=== PATIENT | female | born 1975 | race Caucasian/White ===

== ENCOUNTER 2022-03-27 09:16 | Emergency (ER) | payer OTHER, SELFPAY ==
[2022-03-27 09:21] VITALS: BP 145/78; PULSE 96; TEMP 36.1; O2SAT 98; BMI 36.6
--- NOTE | 2022-03-27 09:35 | ED_ITS ---
HPI - General Adult General Chief complaint: Skin/Abscess/Foreign Body Stated complaint: Diabetes, swollen toe Time Seen by Provider: 03/27/22 09:27 Source: patient Mode of arrival: ambulatory Limitations: no limitations History of Present Illness HPI narrative: 47-year-old female coming in today complaining of toe pain. She noticed the pain yesterday. She noticed it was swollen and red. She denies any systemic symptoms. She denies trauma to the foot. She does state that she does have diabetic neuropathy and has had a history of toe ulcers in the past. Related Data Home Medications Medication Instructions Recorded Confirmed Novolin R Flexpen PRN 03/27/22 gabapentin 300 mg capsule 900 mg PO TID 03/27/22 03/27/22 insulin NPH isoph U-100 human 100 15 unit subcut BID 03/27/22 03/27/22 unit/mL (3 mL) subcutaneous pen (Novolin N Flexpen) liraglutide 0.6 mg/0.1 mL (18 mg/3 0.6 mg subcut DAILY 03/27/22 03/27/22 mL) subcutaneous pen injector (Sensitive Objectza 3-Odin) lisinopril 10 mg tablet 10 mg PO DAILY 03/27/22 03/27/22 Previous Rx's Medication Instructions Recorded cephalexin 500 mg capsule 500 mg PO QID 7 days #28 caps 03/27/22 Allergies Allergy/AdvReac Type Severity Reaction Status Date / Time cat dander Allergy Unknown Verified 03/27/22 09:28 Review of Systems Status of ROS: Reports: 10 or more systems reviewed and unremarkable except as noted in History and below PFSH PFS Social History Smoking Status: Never smoker Do you use any of these nicotine containing products: None Second hand tobacco smoke exposure: No How often do you have a drink containing alcohol: 4 or more times a week How many standard drinks containing alcohol do you have on a typical day: 5 or 6 How often do you have six or more drinks on one occasion: Weekly AUDIT-C Alcohol total score: 9 Non-prescribed substance use: denies use Exam Narrative: Exam Narrative: Well-nourished well-developed patient in no acute distress. Alert and oriented. Answers questions appropriately. Mood and affect are appropriate. Thoughts are goal oriented and rational. No tangential or magical thinking noted. Patient speaks in full sentences without needing to catch her breath. HEENT: Normocephalic atraumatic. Pupils are equally round reactive to light. Extraocular muscles are intact. Conjunctivae are moist without any icterus noted. Extremities: Bilateral lower extremities are without edema. Normal DP and PT pulses. Fourth phalanx of the right foot is markedly swollen. It is warm to touch. It is not significantly erythematous however. She does not have tenderness to palpation of that toe. She has some tenderness right at the base of the toe. The remainder of the foot is entirely normal. Const: Vital Signs, click to edit/add: Vital Signs - 24 hr 03/27/22 09:21 Temperature 96.9 F L Pulse Rate [Left P ulse Oximeter] 96 Blood Pressure [Ri ght Upper Arm] 145/78 H Pulse Oximetry 98 Oxygen Delivery Me thod Room Air Course Vital Signs Vital signs: Initial Vital Signs Temperature 96.9 F L 03/27/22 09:21 Temperature Source Temporal Artery Scan 03/27/22 09:21 Pulse Rate 96 03/27/22 09:21 Blood Pressure 145/78 H 03/27/22 09:21 Blood Pressure Mean 100 03/27/22 09:21 Blood Pressure Position Supine 03/27/22 09:21 Pulse Oximetry 98 03/27/22 09:21 Oxygen Delivery Method 03/27/22 09:21 Vital Signs Temperature 96.9 F L 03/27/22 09:21 Pulse Rate 96 03/27/22 09:21 Blood Pressure 145/78 H 03/27/22 09:21 Pulse Oximetry 98 03/27/22 09:21 Oxygen Delivery Method 03/27/22 09:21 Temperature 96.9 F L 03/27/22 09:21 Pulse Rate 96 03/27/22 09:21 Blood Pressure 145/78 H 03/27/22 09:21 Pulse Oximetry 98 03/27/22 09:21 Oxygen Delivery Method 03/27/22 09:21 Medical Decision Making MDM Narrative Medical decision making narrative: 47-year-old female with toe pain and swelling. Differential diagnoses includes trauma, cellulitis, gout, insect bite. Given her history of diabetes and history of ulcers in the past will go ahead and treat with Keflex q.i.d. we discussed returning to the ER if no improvement is noted in 48 hours or certainly if it is getting worse despite antibiotic treatment. We discussed imaging today, however given her lack of pain on examination, using joint decision making, we opted not to do any today. Discharge Plan Discharge Clinical Impression: Pain in toe Patient Disposition: Home, Self-Care Condition: Stable Additional Instructions: Possible causes of toe pain include trauma, cellulitis-an infection of the skin surrounding the toe, gout. Given your history of ulcerations of the toes we will go ahead and treat you today with an antibiotic. If you do not see improvement in 48 hours, recommend returning to your primary care provider for a re-evaluation. If it is getting worse despite antibiotic treatment, recommend returning to the ER. Elevate the leg throughout the day as much as you can to help with swelling and discomfort. Prescriptions: New cephalexin 500 mg capsule 500 mg PO QID 7 Days Qty: 28 0RF No Action Novolin R Flexpen PRN Novolin N Flexpen 100 unit/mL (3 mL) insulin pen 15 unit subcut BID Victoza 3-Odin 0.6 mg/0.1 mL (18 mg/3 mL) pen injector 0.6 mg subcut DAILY gabapentin 300 mg capsule 900 mg PO TID lisinopril 10 mg tablet 10 mg PO DAILY Stand Alone Forms: MyHealth Info Instructions
== END 2022-03-27 09:50 | disposition home or self-care (01) ==
LOC: ED 09:47
PROVIDERS: Emergency Provider Family Medicine
DX: M79.674 Pain in right toe(s) (principal)
CPT/HCPCS: 99283

== ENCOUNTER 2025-01-29 16:49 | Emergency (ER) | payer OTHER, SELFPAY ==
--- OUTSIDE RECORDS SUMMARY | 2023-12-21 04:27 | XMS_ITS | Continuity of Care Document ---
Author Organization [facility] Address [address] [facility] [place] [address] Phone Care Team Providers Care Maintenance Construction Helper Name Role Phone Lukasz Ortiz DO Unavailable Unavailable Medications Medication Instructions Dosage Effective Dates (start - stop) Status Comments gabapentin 300 mg capsule take 3 capsule by oral route 3 times every day 900 MG - Active lisinopril 10 mg tablet take 1 tablet by oral route every day 10 MG - Active simvastatin 20 mg tablet take 1 tablet by oral route every day in the evening 20 MG - Active hydroxyzine HCl 50 mg tablet take 1 tablet by oral route 4 times every day as needed 50 MG - Active metformin 500 mg tablet take 2 tablet by oral route 2 times every day with morning and evening meals 1000 MG - Active trazodone 50 mg tablet take 1 tablet by oral route every day at bedtime 50 MG - Active Procedures Procedure Date PT EVAL MOD COMPLEX 30 MIN SELF CARE MNGMENT TRAINING Psych Dx Eval OFFICE/OUTPATIENT VISIT, [facility] Advance Directives Directive Yes / No Effective Date File Name No Information Encounters Encounter Description Practice Location Reason(s) For Visit Diagnoses Date Provider Providers Copied on Encounter [facility], [address] [place] [address], [id number] , [place] tel:[phone] [facility] [place] No Information Diana Lal. [address] [facility], [place], [place], [id number] , [place]. tel:[phone] [facility], [address] [place], [place], [id number] , [place] tel: [phone] [facility] [place] pain (chief complaint) Type 2 diabetes mellitus with diabetic polyneuropathy 4 Samra Rossi. [address] [place] [address], [id number] , [place]. tel: [phone] Referring Provider: Pedro Luis Torres, [address] [place] [address] [place], [address] . tel:[phone] [facility], [address] [place] [address], [id number] , [place] tel: [phone] [facility] Type 2 diabetes mellitus with diabetic polyneuropathy 4 Diana Lal. [address] [place] [address] [facility] [place], [place], [place], [id number] , [place]. tel: [phone] Psych Dx Eval [facility], [address] [place] [address], [id number] , [place] tel: [phone] Telehealth Pain disorder with related psychological factorsAnxiety Disorder Due to Another Medical Condition 4 Melina Nava. [address] [place] [address], [id number] , [place]. tel: [phone] OFFICE/OUTPA TIENT VISIT, [facility], [address] [place] [address] [place], [id number] , [place] tel: [phone] [facility] bilateral foot pain (chief complaint) Chronic pain syndromeType 2 diabetes mellitus with diabetic polyneuropathyOther middle or intermediate school principal (current) drug therapyPain in right footPain in left foot 4 Diana Lal. [address] [place] [address], [place], [place], [id number] , [place]. tel:[phone] Referring Provider: Pedro Luis Torres, [address] [place] [address] [place], [address] . tel:[phone] Family History Family Member Type Diagnosis Age At Onset No Information Payers Payer name Insurance type Covered democrat ID Noah raines(s) Umr CI [id number] Social History Type Description Quantity Date Captured Comments Alcohol Use Details Unknown Caffeine Use Details Unknown Tobacco Use Status No Information Smoking Status No Information Sex Female Chief Complaint And Reason For Visit No Information Reason For Referral Reason For Referral No Information Plan Of Treatment Date Type Action Status Goal HPV. Due on due Goal Tobacco Use. Due on due Goal Unhealthy drug u se screening. Due on due Goal Lipid panel. Due on due Goal Review Allergy L ist. Due on due Goal Medication Recon ciliation. Due on due Goal PHQ-9. Due on du e Goal Update Social Hi story. Due on due Goal Weight. Due on d ue Goal Height. Due on d ue Goal Hepatitis C scre ening. Due on due Goal Review Allergy L ist. Due on due Goal Lipid panel. Due on due Goal Weight. Due on d ue Goal Update Social Hi story. Due on due Goal Unhealthy drug u se screening. Due on due Goal HPV. Due on due Goal Tobacco Use. Due on due Goal Medication Recon ciliation. Due on due Goal PHQ-9. Due on du e Goal Height. Due on d ue Goal Hepatitis C scre ening. Due on due Goal Lipid panel. Due on due Goal Unhealthy drug u se screening. Due on due Goal PHQ-9. Due on du e Goal Height. Due on d ue Goal HPV. Due on due Goal Hepatitis C scre ening. Due on due Goal Review Allergy L ist. Due on due Goal Update Social Hi story. Due on due Goal Tobacco Use. Due on due Goal Weight. Due on d ue Goal Medication Recon ciliation. Due on due Goal Tobacco Use. Due on due Goal Weight. Due on d ue Goal HPV. Due on due Goal Medication Recon ciliation. Due on due Goal Lipid panel. Due on due Goal Unhealthy drug u se screening. Due on due Goal Update Social Hi story. Due on due Goal PHQ-9. Due on du e Goal Review Allergy L ist. Due on due Goal Height. Due on d ue Goal Hepatitis C scre ening. Due on due Goal Hepatitis C scre ening. Due on due Goal Height. Due on d ue Goal Medication Recon ciliation. Due on due Goal PHQ-9. Due on du e Goal HPV. Due on due Goal Lipid panel. Due on due Goal Review Allergy L ist. Due on due Goal Unhealthy drug u se screening. Due on due Goal Weight. Due on d ue Goal Tobacco Use. Due on due Goal Update Social Hi story. Due on due Goal Lifestyle educat ion regarding diet completed Future Order: Radiology Order MR Monie PITTS ([id number]), Sent on: Sent History Of Present Illness Encounter Date Complaint History Of Prese nt Illness pain diabetic neuropa thyPatient is a48 year old female with complaints of chronic bilateral foot neuropathy pain that has been around for about 5 years. Pain is located in bilateral feet especially toes and forefoot. Symptoms include sharp pain like walking on glass or rocks, stiffness, burning shooting pain and tingling. Pain is aggravated by weight bearing activity standing walking stairs. Patient also notes a wound on her toe that has been healing since May. Symptoms are somewhat relieved rest or change of position and medications. She has tried multiple different interventions, including podiatry. She has tries stretching and ankle ROM exercises without benefit She notes that his current level of discomfort limits standing for work, walking in community, dressing and standing for personal ADLs. Patient is hopeful a SCS will help her tolerate her daily activity with less limitation.This visit was conducted via synchronous telemedicine through an encrypted, real-time, interactive audio and video telecommunications to minimize risk and transmission of COVID-19. The distant site for this visit was the provider's office, the originating site was the patient's home. The patient and we understand the limitations of a telemedicine visit and the possibility of missing subtle findings on physical exam. The patient elected to proceed with the visit. Comments: Lary is a 48 y/o female here for initial consult regarding ongoing pain in BL feet r/t diabetic polyneuropathy, referred by self. Pain began suddenly approximately 5 years ago. Pain averages 4/10 throughout the day but worse at night 6-7/10 and is described as burning, sharp, and shocks. Reports she is very active at her work and her pain limits her ability to fully complete tasks and ADLs. States she has ulcers on her toes and her previous doctor recommended she find a new job with less physical labor to avoid further injury. Patient is present with her sister who participates in today's discussion of care. Notes she had an injury many years ago in which she fell and injured her lateral right hip and leg, causing paresthesia for several years in her upper right leg. However, notes this has been of less concern lately compared to pain and neuropathy in her BL feet. She has tried PT at [facility] in 2022 for her left shoulder s/p left SAD and was given a HEP. States she has previously completed lumbar ESIs. Notes her most recent A1C level was 8.0 and she continues to monitor regularly. The patient is currently managed on Gabapentin 900mg TID with relief, however, notes she would like to work towards limiting medicaiton use d/t possible negative SEs and strain on her kidneys. She is also currently utilizing metformin with benefit. Has tried Percocet 5/325mg, [place] 5/325mg, and Tramadol 50mg in the past. Lary is interested in pain management through [facility]. No other concerns today. bilateral foot pain Onset: sudde n. Duration: chronic. Severity level is 6. It occurs constantly. Location: bilateral foot. The pain is burning, sharp and shocks. The pain is aggravated by climbing (and descending) stairs, walking, standing, running and movement. The pain is relieved by heat, pain/RX meds, rest, lying down and sitting. Hand Dominance: right. Functional Status Date Functional Assessmen t No Information Instructions Date Instruction Additional Infor adeel Lifestyle education regarding di et Related to Myalgia, other site Assessments Type Assessment Date No Information Patient Care Teams Name Effective Dates (start - stop) Status Members No Information
--- OUTSIDE RECORDS SUMMARY | 2023-12-21 04:27 | XMS_ITS | Continuity of Care Document ---
Author Organization [facility] Address [address] [facility] [place] [address] Phone Care Team Providers Care International First Officer Name Role Phone Lukasz Ortiz DO Unavailable [...] MNGMENT TRAINING Psych Dx Eval OFFICE/OUTPATIENT VISIT, [facility] Advance Directives Directive Yes / No Effective Date File Name No Information Encounters Encounter Description Practice Location Reason(s) For Visit Diagnoses Date Provider Providers Copied on Encounter [facility], [address] [place] [address], [id number] , [place] tel:[phone] [facility] [place] No Information Diana Lal. [address] [facility], [place], [place], [id number] , [place]. tel:[phone] [facility], [address] [place], [place], [id number] , [place] tel: [phone] [facility] [place] pain (chief complaint) Type 2 diabetes mellitus with diabetic polyneuropathy 4 Samra Rossi. [address] [place] [address], [id number] , [place]. tel: [phone] Referring Provider: Pedro Luis Torres, [address] [place] [address] [place], [address] . tel:[phone] [facility], [address] [place] [address], [id number] , [place] tel: [phone] [facility] Type 2 diabetes mellitus with diabetic polyneuropathy 4 Diana Lal. [address] [place] [address] [facility] [place], [place], [place], [id number] , [place]. tel: [phone] Psych Dx Eval [facility], [address] [place] [address], [id number] , [place] tel: [phone] Telehealth Pain disorder with related psychological factorsAnxiety Disorder Due to Another Medical Condition 4 Melina Nava. [address] [place] [address], [id number] , [place]. tel: [phone] OFFICE/OUTPA TIENT VISIT, [facility], [address] [place] [address] [place], [place], [id number] , [place] tel: [phone] [facility] bilateral foot pain (chief complaint) Chronic pain syndromeType 2 diabetes mellitus with diabetic polyneuropathyOther computer terminal operator (current) drug therapyPain in right footPain in left foot 4 Diana Lal. [address] [place] [address], [place], [place], [id number] , [place]. tel:[phone] Referring Provider: Pedro Luis Torres, [address] [place] [address] [place], [address] . tel:[phone] Family History Family Member Type Diagnosis Age At Onset No Information Payers Payer name Insurance type Covered republican ID Noah raines(s) Umr CI [id number] Social History Type Description Quantity Date Captured Comments Alcohol Use Details Unknown Caffeine Use Details Unknown Tobacco Use Status No Information Smoking Status No Information Sex Female Chief Complaint And Reason For Visit No Information Reason For Referral Reason For Referral No Information Plan Of Treatment Date Type Action Status Goal Review Allergy L ist. Due on due Goal Medication Recon ciliation. Due on due Goal PHQ-9. Due on du e Goal Update Social Hi story. Due on due Goal Weight. Due on d ue Goal Height. Due on d ue Goal Hepatitis C scre ening. Due on due Goal HPV. Due on due Goal Tobacco Use. Due on due Goal Unhealthy drug u se screening. Due on due Goal Lipid panel. Due on due Goal Hepatitis C scre ening. Due on due Goal Height. Due on d ue Goal PHQ-9. Due on du e Goal Medication Recon ciliation. Due on due Goal Tobacco Use. Due on due Goal HPV. Due on due Goal Unhealthy drug u se screening. Due on due Goal Update Social Hi story. Due on due Goal Weight. Due on d ue Goal Lipid panel. Due on due Goal Review Allergy L ist. Due on due Goal Height. Due on d ue Goal PHQ-9. Due on du e Goal Unhealthy drug u se screening. Due on due Goal HPV. Due on due Goal Hepatitis C scre ening. Due on due Goal Review Allergy L ist. Due on due Goal Update Social Hi story. Due on due Goal Tobacco Use. Due on due Goal Weight. Due on d ue Goal Medication Recon ciliation. Due on due Goal Lipid panel. Due on due Goal Hepatitis C scre ening. Due on due Goal Height. Due on d ue Goal Review Allergy L ist. Due on due Goal PHQ-9. Due on du e Goal Update Social Hi story. Due on due Goal Unhealthy drug u se screening. Due on due Goal Tobacco Use. Due on due Goal Weight. Due on d ue Goal HPV. Due on due Goal Medication Recon ciliation. Due on due Goal Lipid panel. Due on due Goal Hepatitis C scre [...] BL feet. She has tried PT at [facility] in 2022 for her left shoulder s/p [...] metformin with benefit. Has tried Percocet 5/325mg, [place] 5/325mg, and Tramadol 50mg in the past. Lary is interested in pain management through [facility]. No other concerns today. bilateral foot pain [...]
--- OUTSIDE RECORDS SUMMARY | 2025-01-29 16:52 | XMS_ITS | Clinical Summary ---
Author Organization [facility] Address [address] [place] [id number] Care Team Providers Care Professor Of History Name Role Phone Nadira Lew CNM Unavailable Opal Guajardo Primary Care Provider Allergies No known active allergies Medications simvastatin (ZOCOR) 20 mg tablet TAKE 1 TABLET BY MOUTH EVERYDAY AT BEDTIME 05/14/20 20 Active acetaminophen (TYLENOL) 325 mg tabletIndications: Other headache syndrome Take 2 Tablets (650 mg) by mouth every 6 hours. Max acetaminophen dose: 4000mg in 24 hrs. 30 Tablet 06/27/20 21 Active insulin regular, U-100, human (NovoLIN R Flexpen) 100 unit/mL (3 mL) penIndications:typ e 2 diabetes mellitus Inject 0-16 units subcutaneous three times daily. Active blood-glucose sensor (DEXCOM G5-G4 SENSOR [facility]) As directed. Patient replaces every 10 days Active lisinopriL (PRINIVIL; ZESTRIL) 20 mg tablet Take 10 mg by mouth once daily. Active gabapentin (NEURONTIN) 300 mg capsule Take 900 mg by mouth three times daily. Active escitalopram oxalate (LEXAPRO) 10 mg tablet Take 10 mg by mouth once daily. patient has not started this prescription Active traZODone (DESYREL) 50 mg tablet Take 50 mg by mouth at bedtime. Active liraglutide (Victoza 2-Odin) 0.6 mg/0.1 mL (18 mg/3 mL) injection Inject 0.6 mg subcutaneous once daily. Patient is injecting 0.6 mg daily and slowly titrating her dose up to 1.2 mg Active aspirin (ECOTRIN) 81 mg enteric coated tablet Take 81 mg by mouth once daily with a meal. Active ascorbic acid, vitamin C, (Vitamin C) 1,000 mg tablet Take 1,000 mg by mouth once daily. Active ALPRAZolam (XANAX) 0.25 mg tablet Take 0.25 mg by mouth at bedtime, may repeat once. 01/09/20 23 Active FLUoxetine (PROZAC) 10 mg capsule Take 10 mg by mouth every morning. 03/03/20 23 Active hydrOXYzine HCL (ATARAX) 50 mg tablet Take 50 mg by mouth every 8 hours if needed. 03/03/20 23 Active naproxen (NAPROSYN) 500 mg tablet Take 500 mg by mouth every 12 hours if needed. 02/04/20 23 Active tretinoin (RETIN-A) 0.025 % 0.025 % cream Apply 1 Application topically to affected area(s) at bedtime. 02/04/20 23 Active oxyCODONE-acetamin ophen (PERCOCET) 5-325 mg per tabletIndications: Generalized abdominal pain Take 1 Tablet by mouth every 6 hours if needed for Pain. Max acetaminophen dose: 4000mg in 24 hrs. 15 Tablet 09/18/19 24 Active meclizine (ANTIVERT) 25 mg tabletIndications: Peripheral vertigo, unspecified laterality Take 1 Tablet (25 mg) by mouth every 6 hours if needed for Vertigo. 25 Tablet 08/28/19 25 Active metoclopramide HCl (REGLAN) 10 mg tabletIndications: Vertigo,Nausea and vomiting, unspecified vomiting type Take 1 Tablet (10 mg) by mouth four times daily. 20 Tablet 08/31/19 25 Active ondansetron (ZOFRAN ODT) 4 mg disintegrating tabletIndications: Nausea and vomiting, unspecified vomiting type Place 1 Tablet (4 mg) on the tongue every 8 hours if needed for Nausea/Vomiting. 10 Tablet 08/31/19 25 Active Active Problems Problem Noted Date Diagnosed Date Impingement syndrome of shoulder, left 3 Acute appendicitis 09/17/2022 Neuropathy, peripheral 05/08/2020 Hyperlipidemia (goal LDL < 100) 12/12/2013 Genital warts 12/02/2009 Diabetes mellitus, type 2 (diagnosed 1999+/-) Infertility 12/02/2009 Genital herpes 12/02/2009 Immunizations Immunization Administration Dates Next Due Influenza, IIV3 (Age >=3 years) 05/28/2008 Pneumococcal Poly,23-Valent (Pneumovax) 11/11/19 03 Td (Age >=7 Years) 08/24/1999 Tdap 04/11/2012 Family History Medical History Relation Name Comments Diabetes Father Hyperlipidemia Father Hypertension Father Hyperlipidemia Mother Hypertension Mother Relation Name Status Comments Father Mother Social History Tobacco Use Types Packs/Day Years Used Date Smoking Tobacco: Never Smokeless Tobacco: Never Tobacco Cessation:Counseling Given: Not Answered Alcohol Use Standard Drinks/Week Comments Yes 0 (1 standard drink = 0.6 oz pur e alcohol) occasional Social Connections Answer Date Recorded Frequency of Communication with Friends and Fami ly Not on file 12/01/2022 Interpersonal Safety Answer Date Record ed Are you being hit, kicked, p ushed or yelled at (see row info)? 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 Not on file Not on file Not on file Obstetrics History Para Term AB IAB SAB Ectopic Multiple Livin g Live Births 2 0 0 0 2 0 2 0 0 0 Date Outcome GA Total Labor Labor/2nd/3rd Weight Sex Type Anes PTL Tamy A1 A5 Name Clin SAB SAB Last Filed Vital Signs Vital Sign Reading Time Taken Comments Blood Pressure 160/86 08/31/2024 8:16 PM [employer] Pulse 60 08/31/2024 8:16 PM [employer] Temperature 36.9 C (98.4 F) 08/31/2024 3:31 PM [employer] Respiratory Rate 18 08/31/2024 3:31 PM [employer] IN[employer]ER Oxygen Saturation 99% 08/31/2024 8:16 PM [employer]ER Inhaled Oxygen Concentration - - Weight 83.6 kg (184 lb 6.4 oz) 08/31/2024 3:31 P M [employer] Height 167.6 cm (5' 6) 08/31/2024 2:56 PM [employer] Body Mass Index 29.76 08/31/2024 2:56 PM [employer] Plan of Treatment Health Maintenance Due Date Last Done Comments Depression screening for age 12+ 1989 HIV for age 15-65 1992 BMI (ht and wt on same day) for age 18+ 1995 Hepatitis C screening for age 18-79 1995 Hepatitis B series for 19+ ( 1 of 3 - 19+ 3-dose series) 1996 Pneumococcal series for age 6-49 (2 of 2 - PCV) 11/11/2003 11/10/2002 Pap test for age 21-65 04/11/2015 04/11/2012 Colonoscopy through age 75 2022 Lipids for age 45-75 2022 12/12/2013, 04/11/20 12 Mammogram for age 45-75 2022 Tetanus booster 04/11/2022 04/11/2012, 08/24/1999 COVID-19 vaccine series ( season) 2024 12/19/2020, 11/21/2020 Influenza Vaccine (Season Ended) 2025 05/28/20 08 Tdap Completed 04/11/2012 Medical Devices Implanted Type Area Debrander Device Identifier Shelf Expiration Date Model / Serial / Lot Sut Arthrex Prox Tenodesis Implnt Kit Rev 0 - [id number] Implanted:Qty: 1 on 03/18/2023 by Saul Terry MD at [facility] Left: Shoulder [employer] 03/22/2027 [id number] / / [id number] Procedures Procedure Name Priority Date/Time Associated Diagnosis Comments LIPID PANEL W REFLEX MEASURED LDL Routine 12/12/2013 8:25 AM CDT Screening, lipid MANAGER MEDICAID THIN PREP PAP SCREEN IMAGED Routine 04/11/2012 9:37 AM CDT Screening for cervical cancer from Last 3 Months or Most Recently Relevant to Health Maintenance Results * (ABNORMAL) LIPID PANEL W REFLEX MEASURED LDL (12/12/2013 8:25 AM CDT) CHOLESTEROL,TOTAL 221(H) 100 - 199 mg/dL 12/12/2013 11:13 PM CDT [facility] TRIGLYCERIDES 224(H) <150 mg/dL 12/12/2013 11:13 PM CDT [facility] HDL CHOLESTEROL 44 >40 mg/dL 4 11:13 PM CDT [facility] NON-HDL CHOLESTEROL 177(H) <145 mg/dl 12/12/2013 11:13 PM CDT [facility] CHOL/HDL RATIO 5.02(H) <4.50 12/12/2013 11:13 PM CDT [facility] LDL CHOLESTEROL 132(H) <=130 mg/dL 12/12/2013 11:13 PM CDT [facility] PATIENT STATUS FASTING 12/12/2013 11:13 PM CDT [facility] Blood specimen (specimen) BLOOD SPECIMEN / Unknown Add On / Unknown 12/12/2013 8:25 AM CDT 12/12/2013 11:46 AM CDT Leon Wang MD CHEMISTRY Final Result [facility] [address] [place] [address], * MANAGER MEDICAID THIN PREP PAP SCREEN IMAGED (04/11/2012 9:37 AM CDT) CYTOLOGY CYTOPATHOLOGY REPORT [facility] Status: Final Status [id number] CLINICAL INFORMATION Last Date of LMP :03/19/2012 Last Pap Date :unsure Last Pap Result :NIL ABN Miles/Bx Past 5 YRS :None Hormone Usage :BCP/OCP/Patch/Rin g Menstrual Status :Regular Periods Miles/Bx done today :No Additional Information :None given HPV Request :HPV if ASCUS SPECIMEN SOURCE :Cervical/vaginal ThinPrep Vial, screening SPECIMEN ADEQUACY :Satisfactory for evaluation Endocervical component present. INTERPRETATION/RES ULT Negative for intraepithelial lesion or malignancy (NIL) Cytology 1st Screener :had Signed by :had This specimen was screened by the FDA approved ThinPrep Imaging System and manually reviewed. NOTE: The Pap test is a screening technique, not a diagnostic procedure. It is used primarily to screen for squamous cancers and precursor lesions. Published studies have shown that it is subject to both false negative and false positive results. The pap test should not be used as the sole means to diagnose or exclude pre-malignant and malignant lesions. COLLECTED:04/11/12 ACCESSIONED: 04/11/12 SIGNED: 04/13/12 [facility] P[facility] [place] CODE NIL [facility] Tissue specimen (specimen) (Cervical/Vagina l) 04/11/2012 9:37 AM CDT 04/11/2012 9:26 AM CDT us Leon Wang MD PATHOLOGY/CYTOLOGY Final Resul t [facility] INTERNAL ZIP [address] [place] [phone] from Last 3 Months or Most Recently Relevant to Health Maintenance Insurance [facility] [employer] Advance Directives * Full Code (Latest Code Status on File) Date Activated Date Inactivated Comments 03/18/2023 6:09 AM 03/18/2023 1:34 PM Question Answer Comments Code Status Discussion: Not Discussed * Full Code Date Activated Date Inactivated Comments 09/17/2022 12:32 PM 09/18/2022 6:58 PM Question Answer Comments Code Status Discussion: Unable to Assess Preferences, Provider to review later * Full Code Date Activated Date Inactivated Comments 06/27/2021 6:50 AM 06/27/2021 3:56 PM Question Answer Comments Code Status Discussion: Unable to Assess Preferences, Provider to review later Care Teams Professor Of History Relationship Specialty Start Date End Date Opal Guajardo PA [address] [id number] PCP - General Physician [employer] Worker 09/17/22 Nadira Lew CNM [facility] 03/31/12
--- OUTSIDE RECORDS SUMMARY | 2025-01-29 16:52 | XMS_ITS | Data Portability ---
Author Organization [place] - [facility], [employer] Address [address] [facility] [place] [address] Assessment Encounter Date Assessment Date Assessment LastModified by Organization Details LastModified Time 08/27/2023 08/27/2023 I did discussed findings with the patient. We have shown significant improvement in ulcer healing at this point. We debrided her lesions as previously documented. We discussed putting her in a custom orthotics to offload the pressure on her foot as well as the ulcer spots and discussed activity modifications. Advised to apply neosporin and band-aid on the right great toe ulcer. Additionally we talked about referral to [facility] for [facility] of the lower extremities to confirm for possible venous disease that is causing the swelling on her right ankle. Follow up in 1 week for ulcer re check. [email or web address] Not available 08/27/2023 17:04:47 09/03/2023 09/03/2023 I did discussed findings with the patient. We have shown significant improvement in ulcer healing at this point. We debrided her lesions as previously documented. We discussed putting her in a custom orthotics to offload the pressure on her foot as well as the ulcer spots and discussed activity modifications. Advised to apply neosporin and band-aid on the right great toe ulcer. The patient today was dispensed a pair of custom inserts (L3000 x2) and they were trimmed to fit shoegear. The patient will attempt these for a few weeks prior to a recheck. The goal director long term care would be to utilize these functional inserts to prevent ulcerations to the medial IPJ. If necessary we will proceed with modified Abad bunionectomy for correction. Additionally we talked about referral to [facility] for [facility] of the lower extremities to confirm for possible venous disease that is causing the swelling on her right ankle. Follow up in 2 weeks for ulcer re check. Not available 09/03/2023 22:27:07 10/01/2023 10/01/2023 I did discussed findings with the patient. Pre ulcerative lesions x 2 were debrided as previously documented. The goal director long term care would be to utilize the previously dispensed functional inserts to prevent ulcerations to the medial IPJ. If necessary we will proceed with modified Abad bunionectomy for correction. Additionally [facility] to confirm for possible venous disease that is causing the swelling on her right ankle. Follow up in 3 weeks for ulcer re check. Not available 10/01/2023 22:59:03 10/22/2023 10/22/2023 I did discussed findings with the patient. Pre ulcerative lesions x 2 were debrided as previously documented. The goal residential would be to utilize the previously dispensed functional inserts to prevent ulcerations to the medial IPJ. If necessary we will proceed with modified Abad bunionectomy for correction. Additionally we talked about referral to my partner, Dr. Tabor, for nerve stimulator to stimulate her nerves. We also talked about referral to [facility] for ultrasound of the lower extremities to confirm for possible venous disease that is causing the swelling on her right ankle. Follow up in 3 weeks for ulcer re check. Not available 10/24/2023 11:51:10 11/15/2023 11/15/2023 I did discussed findings with the patient. Pre ulcerative lesions x 2 were debrided as previously documented. Patient is now interviewing for new jobs at this time. The goal residential would be to utilize the previously dispensed functional inserts to prevent ulcerations to the medial IPJ. If necessary we will proceed with modified Abad bunionectomy for correction. Additionally we talked about referral to my partner, Dr. Tabor, for nerve stimulator to stimulate her nerves. We also talked [facility] to confirm for possible venous disease that is causing the swelling on her right ankle. Follow up in 3 weeks for ulcer re check. Not available 11/15/2023 16:13:51 Plan of Treatment Reminders Order Date Submit Date Provider Last Modified By Organization Details Last Modified Time Details Appointments None record ed. Lab None record ed. Referral None record ed. Procedures None record ed. Surgeries None record ed. Imaging None record ed. Medication Orders None record ed. Patient TargetsNo targets recorded. Patient InstructionsNo instructions recorded. Reason for Referral None Reported. Problems Name Problem SNOMED Code Status Onset Date Resolution Date Notes Provider Name and Address Organization Details Recorded Time Onychomyc osis of toenails 606622205 Active 2020 Onychomyco sis of toenails; Original Code: 3919111886 Original Codesystem : SNOMED CT Classif ication: Medical Co nfirmation Status: Confirmed Not Available [facility] 3 09:06:28 Pressure ulcer stage 1 Active 2020 Pressure ulcer stage 1; Original Code: 6532946939 Original Codesystem : SNOMED CT Classif ication: Medical Co nfirmation Status: Confirmed Not Available [facility] 3 09:06:28 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 Procedures Surgical History Date Name Laterality Status Provider Name and Address Organization Details Recorded Time 11/15/19 24 CallusDEBRIDEMENT [place], [address], [facility] 11/15/2023 16:13:16 10/22/19 24 CallusDEBRIDEMENT completed Nikhil Ashby [facility] 10/22/2023 16:13:06 10/01/19 24 CallusDEBRIDEMENT completed Nikhil Ashby [facility] 10/01/2023 16:19:32 09/03/19 24 CallusDEBRIDEMENT completed Randall Baez DPM [address] [place], [address], [facility] - [facility] 09/03/2023 22:24:40 08/27/19 24 CallusDEBRIDEMENT completed Randall Baez, CLARI [address] [place], [address], [facility] - [facility] 08/29/2023 19:24:41 08/19/20 23 Ulcer Care completed Nikhil Ashby [place] - [facility] 08/19/2023 15:35:11 08/11/20 23 Ulcer Care completed Nikhil Ashby [facility] 08/17/2023 05:15:27 Imaging Results None recorded. Procedure Notes None recorded. Medical Equipment None Reported. Medications Name Sig Start Date Stop Date Status Note LastModified by Organization Details LastModified Time trazodone 50 mg tablet TAKE 1 TABLET BY MOUTH EVERY DAY AT BEDTIME NEEDED FOR SLEEP active Not Available Not Available No t Available hydrocodone 5 mg-acetamino phen 325 mg tablet PLEASE SEE ATTACHED FOR DETAILED DIRECTIONS active Not Available Not Available N ot Available tretinoin 0.025 % topical cream PLEASE SEE ATTACHED FOR DETAILED DIRECTIONS active Not Available Not Available N ot Available ondansetron HCl 4 mg tablet TAKE 1 TABLET BY MOUTH EVERY 8 HOURS NEEDED FOR NAUSEA AND VOMITING active Not Available Not Available No t Available benzoyl peroxide 5 % topical gel APPLY TO FACE DAILY DURING THE DAY. USE WITH THE CLINDAMYCIN GEL. active Not Available Not Available No t Available Accu-Chek Softclix Lancets 2 EACH DAILY. active Not Available Not Available No t Available hydroxyzine HCl 50 mg tablet TAKE 1 TABLET BY MOUTH THREE TIMES A DAY NEEDED FOR ANXIETY active Not Available Not Available Not Available tramadol 50 mg tablet PLEASE SEE ATTACHED FOR DETAILED DIRECTIONS active Not Available Not Available N ot Available ketorolac 10 mg tablet TAKE 1 TABLET BY MOUTH EVERY 6 HOURS NEEDED FOR PAIN FOR UP TO 5 DAYS MAXIUM OF 40MG IN 24 HOURS active Not Available Not Available No t Available oxycodone-ac etaminophen 5 mg-325 mg tablet TAKE 1 TABLET BY MOUTH EVERY 6 HOURS NEEDED FOR PAIN . DO NOT EXCEED 4000 MG OF ACETAMINOPH EN PER 24 HOURS active Not Available Not Available No t Available alprazolam 0.25 mg tablet TAKE 1 TABLET BY MOUTH AT BEDTIME NEEDED FOR ANXIETY. active Not Available Not Available No t Available clindamycin 1 % topical gel APPLY TO FACE DAILY DURING THE DAY. USE WITH THE BENZOYL PEROXIDE GEL. active Not Available Not Available No t Available simvastatin 20 mg tablet TAKE 1 TABLET BY MOUTH EVERYDAY AT BEDTIME active Not Available Not Available No t Available polymyxin B sulfate 10,000 unit-trimeth oprim 1 mg/mL eye drops PLACE 1 DROP INTO RIGHT EYE EVERY 6 HOURS FOR 5 DAYS. active Not Available Not Available No t Available fluoxetine 10 mg capsule TAKE 1 CAPSULE BY MOUTH EVERY DAY active Not Available Not Available No t Available gabapentin 300 mg capsule TAKE 3 CAPSULES BY MOUTH 3 TIMES A DAY. active Not Available Not Available No t Available sertraline 25 mg tablet TAKE 1 TABLET (25MG) BY MOUTH DAILY X7 DAYS, 2 TABS (50MG) DAILY X7 DAYS, THEN 3 TABS (75MG) DAILY. active Not Available Not Available No t Available hydroxyzine HCl 10 mg tablet TAKE 1-2 TABLETS (10-20 MG TOTAL) BY MOUTH EVERY 8 (EIGHT) HOURS NEEDED FOR ANXIETY. active Not Available Not Available No t Available ondansetron 4 mg disintegrati ng tablet DISSOLVE 1 TABLET IN MOUTH EVERY 8 HOURS NEEDED FOR NAUSEA AND FOR VOMITING active Not Available Not Available No t Available metformin ER 500 mg tablet,exten ded release 24 hr PLEASE SEE ATTACHED FOR DETAILED DIRECTIONS active Not Available Not Available N ot Available naproxen 500 mg tablet TAKE 1 TABLET BY MOUTH TWICE A DAY NEEDED FOR PAIN active Not Available Not Available No t Available amoxicillin 875 mg-potassium clavulanate 125 mg tablet active Not Available Not Available Not Available escitalopram 10 mg tablet TAKE 1 TABLET BY MOUTH EVERY DAY active Not Available Not Available No t Available BD Ultra-Fine Mini Pen Needle 31 gauge x 11/05 active Not Available Not Available Not Available Victoza 3-Odin 0.6 mg/0.1 mL (18 mg/3 mL) subcutaneous pen injector INJECT 1.2 MG UNDER THE SKIN DAILY INDICATIONS : TYPE 2 DIABETES MELLITUS. active Not Available Not Available No t Available Trulicity 1.5 mg/0.5 mL subcutaneous pen injector active Not Available Not Available Not Available Accu-Chek Guide test strips 2 TEST DAILY. active Not Available Not Available No t Available Accu-Chek Guide Me Glucose Meter TEST DIRECTED FOR DIABETES CONTROL active Not Available Not Available No t Available Vitals None Recorded Social History None recorded. Functional Status None recorded. Mental Status None recorded. Family History Nothing Reported. Medical History No medical history recorded. Gynecological HistoryNo gynecological history recorded. 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 7999091156 778700 M20.5X1 Acquired h allux limitus of left great toe 0572856883 635223 M20.5X2 [id number] Randall Baez [facility] Main Office [address] [place] [address] 08/19/2023 15:24:02 08/26/2023 13:20:21 Peripheral neuropathy due to type 2 diabetes mellitus 1317066666 107 E11.42 Ulcer of foot 42745885 L 97.909 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 6403982234 191989 M20.5X1 Acquired h allux limitus of left great toe 2932420965 856741 M20.5X2 [id number] Randall Baez [facility] Main Office [address] [place] [address] 08/27/2023 16:08:18 08/30/2023 11:51:13 Peripheral neuropathy due to type 2 diabetes mellitus 7266318057 107 E11.42 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 2358785442 860413 M20.5X1 Acquired h allux limitus of left great toe 2017993683 137342 M20.5X2 Foot callus 261542215 L8 4 x2 [id number] Randall Baez [facility] Main Office [address] [place] [address] 09/03/2023 15:51:14 09/06/2023 10:45:46 Pain in left foot 8324125373 70047 M79.672 Pain in right foot 06144 88144 38685 M79.671 Peripheral neuropathy due to type 2 diabetes mellitus 9138776637 107 E11.42 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 5975517557 213824 M20.5X1 Acquired h allux limitus of left great toe 1783678501 127915 M20.5X2 Foot callus 136689849 L8 4 x2 [id number] Randall Baez [facility] Main Office [address] [place] [address] 10/01/2023 16:26:23 10/04/2023 09:38:12 Peripheral neuropathy due to type 2 diabetes mellitus 6734140019 107 E11.42 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 2100874876 250636 M20.5X1 Acquired h allux limitus of left great toe 2721952324 922413 M20.5X2 Foot callus 230506048 L8 4 x2 [id number] Randall Baez [facility] Main Office [address] [place] [address] 10/22/2023 16:00:38 10/25/2023 13:57:48 Peripheral neuropathy due to type 2 diabetes mellitus 5914967380 107 E11.42 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 2953120977 887513 M20.5X1 Acquired h allux limitus of left great toe 3638032736 247164 M20.5X2 Foot callus 681309902 L8 4 x2 [id number] Randall Baez [facility] Main Office [address] [place] [address] 11/15/2023 15:59:04 11/15/2023 16:24:00 Peripheral neuropathy due to type 2 diabetes mellitus 3836046751 107 E11.42 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 4978839013 414033 M20.5X1 Acquired h allux limitus of left great toe 1709958480 210738 M20.5X2 Foot callus 995565170 L8 4 x2 Health Concerns Section Related Observation LastModified by Organization Detai ls LastModified Time None Recorded Concern Status LastModified by Organization Details LastModified Time None Recorded Advance Directives Directive None Recorded Payers Encounter Date Sequence Insurance Name Policy Number Policy [employer] Covered Member ID [employer] Member ID Guarantor Name 08/27/2023 1 R [id number] Lary Thapa [id number] Lary Thapa 09/03/2023 1 R [id number] Lary Thapa [id number] Lary Thapa 10/01/2023 1 R [id number] Lary Thapa [id number] Lary Thapa 10/22/2023 1 R [id number] Lary Thapa [id number] Lary Thapa 11/15/2023 1 R [id number] Lary Thapa [id number] Lary Thapa Notes Date Note Type Note Provider Name and Address Organization Details Recorded Time 08/27/2023 text/html The patient is here for evaluation of developing diabetic ulcer on the plantar med great toe bilateral. She has had diabetic ulcers before which was resolved. She recalls her last A1c was 8% and neuropathy that has started 5-6 years ago. She also mentions that she is experiencing sensitivity to touch on the arch of the left foot. She is currently using an off the shelf insert and awaiting custom inserts at this time. Randall Baez DPM [address] [place] [address], [phone], [facility] 08/29/2023 19:25:03 09/03/2023 text/html The patient is here for evaluation of developing diabetic ulcer on the plantar med great toe bilateral. She has had diabetic ulcers before which was resolved. She recalls her last A1c was 8% and neuropathy that has started 5-6 years ago. She also mentions that she is experiencing sensitivity to touch on the arch of the left foot. She is currently using an off the shelf insert and her custom inserts have arrived today. The patient presents today not only for a recheck, but also to dispense her custom inserts. Randall Baez DPM [address] [place], [address], [facility] 09/03/2023 22:27:12 10/01/2023 text/html The patient is here for evaluation of developing diabetic ulcer on the plantar med great toe bilateral. She has had diabetic ulcers before which was resolved. She recalls her last A1c was 8% and neuropathy that has started 5-6 years ago. She also mentions that she is experiencing sensitivity to touch on the arch of the left foot. 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 Randall Baez DPM [address] [place], [address], [facility] 10/01/2023 22:59:07 10/22/2023 text/html The patient is here for evaluation of developing diabetic ulcer on the plantar med great toe bilateral. She has had diabetic ulcers before which was resolved. She recalls her last A1c was 8% and neuropathy that has started 5-6 years ago. She also mentions that she is experiencing sensitivity to touch on the arch of the left foot. 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 Randall Baez DPM [address] [place] [address], [phone], [facility] 10/24/2023 11:53:40 11/15/2023 text/html The patient is here for evaluation of developing diabetic ulcer on the plantar med great toe bilateral. She has had diabetic ulcers before which was resolved. She recalls her last A1c was 8% and neuropathy that has started 5-6 years ago. She also mentions that she is experiencing sensitivity to touch on the arch of the left foot. 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 Randall Baez DPM [address] [place], [address], [facility] 11/15/2023 16:13:54 OBGyn Episode No OBEpisode recorded.
--- OUTSIDE RECORDS SUMMARY | 2025-01-29 16:52 | XMS_ITS | Clinical Summary ---
Author Organization [facility] Address [address] [place] [address] Care Team Providers Care Director Of Preclinical Research Name Role Phone Opal Guajardo P.A.-C., P.A. Primary Care Provid er Source Comments Patient records contain information from all sites at [facility]. For routine questions regarding patient records, call [phone] during business hours, M-F 8:00 AM - 5:00 PM Central Time. Record requests for emergency care only can be directed to [phone] at any time.[facility] Allergies No known active allergies Medications * This document contains information received from the source organization and may not represent a complete record from that organization. NovoLIN R Regular U-100 Insuln 100 unit/mL injection Inject 0.1 mL (10 Units total) under the skin 3 (three) times a day before meals. 30 mL 3 10/05/19 20 Active nystatin (NYSTOP) 100,000 unit/gram powderIndications:Ca ndidiasis Intertrigo Apply 1 application topically 3 (three) times a day. 60 g 2 11/15/19 22 Active lisinopriL (PRINIVIL,ZESTRIL) 10 mg tablet TAKE 1 TABLET BY MOUTH EVERY DAY 90 tablet 3 12/31/19 22 Active hydrocortisone 2.5 % ointment Apply 1 application topically 2 (two) times a day. 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 Use with the Benzoyl Peroxide gel. 60 g 3 02/04/20 23 Active tretinoin (RETIN-A) 0.025 % creamIndications:Acn e Vulgaris Apply 1 Application topically at bedtime. Apply to face. Start using every other night for 1-2 weeks, then increase to nightly. Avoid use with Benzoyl Peroxide gel. Do not use during the day. 45 g 3 02/04/20 23 Active simvastatin (ZOCOR) 20 mg tabletIndications:Hy perlipidemia take 1 tablet by mouth everyday at bedtime 90 tablet 3 07/28/20 23 Active hydrOXYzine (ATARAX) 50 mg tabletIndications:An xiety Generalized Disorder TAKE 1 TABLET BY MOUTH 3 TIMES A DAY NEEDED FOR ANXIETY. 90 tablet 09/21/19 24 Active blood sugar diagnostic stripsIndications:Di abetes Mellitus Type 2 With Mild Nonproliferative Diabetic Retinopathy Without Macular Edema Left Eye (HCC) 2 test daily. 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 1 each 11/02/19 24 Active gabapentin (NEURONTIN) 300 mg capsuleIndications:D iabetes Mellitus Type 2 With Diabetic Neuropathy (HCC),Neuropathy Peripheral Take 3 capsules (900 mg total) by mouth 3 (three) times a day. 810 capsule 3 02/07/20 24 025 Active metFORMIN XR (Glucophage-XR) 500 mg 24 hr tabletIndications:Di abetes Mellitus Type 2 With Mild Nonproliferative Diabetic Retinopathy Without Macular Edema Left Eye (HCC) Take 2 tablets (1,000 mg total) by mouth 2 (two) times a day with meals. 360 tablet 3 06/08/20 24 025 Active benzoyl peroxide 5 % gel APPLY TO FACE DAILY DURING THE DAY. USE WITH THE CLINDAMYCIN GEL. Active ALPRAZolam (Xanax) 0.25 mg tabletIndications:An xiety Generalized Disorder,Insomnia Due To Medical Condition,Panic Disorder Episodic Paroxysmal Anxiety Take 1 tablet (0.25 mg total) by mouth at bedtime as needed for anxiety. 10 tablet 06/14/20 Active ergocalciferol (DrisdoL) 50,000 Unit capsuleIndications:D eficiency Vitamin D Take 1 capsule (50,000 Units total) by mouth once a week. 12 capsule 3 07/17/20 24 Active progesterone (Prometrium) 100 mg capsule Take 1 capsule (100 mg total) by mouth at bedtime. On days 12-28 of the cycle 90 capsule 3 07/17/20 Active ondansetron ODT (Zofran-ODT) 4 mg disintegrating tablet Dissolve 1 tablet (4 mg total) in the mouth every 8 (eight) hours as needed for nausea or vomiting. 20 tablet 07/17/20 Active clobetasoL (Temovate) 0.05 % cream Apply 1 Application topically 2 (two) times a day. Apply to rash. Don't apply to face. 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 9 mL 3 07/21/20 24 Active Additional Information Patient not taking.Reported on 08/25/2024 escitalopram (Lexapro) 20 mg tabletIndications:De pression Major Recurrent Moderate (HCC) Take 1 tablet (20 mg total) by mouth daily. 90 tablet 3 08/18/20 24 Active traZODone (DesyreL) 50 mg tabletIndications:An xiety Generalized Disorder,Panic Disorder Episodic Paroxysmal Anxiety Take 2-3 tablets (100-150 mg total) by mouth at bedtime as needed for sleep. for sleep 180 tablet 3 08/18/20 Active omeprazole (PriLOSEC) [address] capsule Take 1 capsule (20 mg total) by mouth daily before morning meal. 90 capsule 3 08/18/20 Active doxycycline hyclate (Vibramycin) 100 mg capsuleIndications:S inusitis Acute Frontal Take 1 capsule (100 mg total) by mouth 2 (two) times a day. 20 capsule 08/25/19 25 Active Active Problems Problem Noted Date Diagnosed Date Impingement Syndrome Shoulder Left 03/16/2023 Depression Major Recurrent Moderate 03/03/2023 Anxiety Generalized Disorder 01/29/2023 Psoriasis 10/15/2021 Panic Disorder Episodic Paroxysmal Anxiety 10/15 Neuropathy Peripheral 10/15/2021 Hypertension Essential Primary 03/12/2021 Morbid Obesity Body Mass Ind ex >= 35 with Comorbid Condition 12/11/2020 Diabetes Mellitus Type 2 With Diabetic Neuropath y 09/02/2020 Amblyopia 08/31/2017 Deformity Orbit From Trauma Right 08/31/2017 Diabetes Mellitus Type 2 Wit h Mild Nonproliferative Diabetic Retinopathy Without Macular Edema Left Eye 08/31/2017 Palsy Fourth Nerve Right 08/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 Hyperlipidemia 12/12/2013 Infertility Female 12/02/2009 Anogenital Venereal Warts 12/02/2009 Herpes Genitalis 12/02/2009 Resolved Problems Problem Noted Date Diagnosed Date Resolved Date Appendicitis Acute 09/17/2022 01/27/2023 3 Immunizations Immunization Administration Dates Next Due HepB Adult (HEPLISAV-B) 02/07/2024,03/12/2021 Influenza, Seasonal, Injectable 05/28/2008 Influenza, Unspecified 10/07/2020(Deferred: Qiana ent Refused) PCV20 01/14/2022 PPSV23 11/10/2002 SARS-COV-2 (COVID-19) - MODERNA(Discontinued) 11/21/2020 Td, (Adult) Unspecified 08/24/1999 Tdap 08/04/2022,04/11/2012 Family History Medical History Relation Name Comments Diabetes Father Saurav Other cancer Father Saurav Prostate/Bone/B rain Skin cancer Mother Juani Diabetes type II Paternal Grandmother Diabetes Sister Ciara Relation Name Status Comments Father Saurav Mother Juani Alive Paternal Grandmother Sister Ciara Alive Social History Tobacco Use Types Packs/Day Years Used Date Smoking Tobacco: Never Passive Smoke Exposure: Past Smokeless Tobacco: Never Tobacco Cessation:Counseling Given: Not Answered Alcohol Use Standard Drinks/Week Comments Yes 6 (1 standard drink = 0.6 oz pur e alcohol) [facility] Utilities Answer Date Recorded In the past 12 months has th e [employer] gas, oil, or water [employer] threatened to shut off services in your home? No 05/12/2024 Humiliation, Afraid, Rape, and Kick questionnair e Answer Date Recorded Fear of Current or Ex-Partner Not on file Emotionally Abused Not on file 05/06/2020 Physically Abused Not on file 05/06/2020 Within the last year, have y ou been raped or forced to have any kind of sexual activity by your partner or ex-partner? No 05/06/2020 Social Connection and Isolation Panel [NHANES] A nswer Date Recorded Frequency of Communication with Friends and Fami ly Not on file 05/06/2020 How often do you get togethe r with friends or relatives? Three times a week 05/06/2020 Attends [employer] Services Not on file 05/06 Active Member of Clubs or Organizations Not on f ile 05/06/2020 Attends Club or Organization Meetings Not on shea e 05/06/2020 Are you , , di vorced, , never , or living with a partner? Living with partner 05/06/2020 AUDIT-C Answer Date Recorded Q1: How often do you have a drink containing alc ohol? 2-3 times a week 05/06/2020 Q2: How many drinks containi ng alcohol do you have on a typical day when you are drinking? 5 or 6 05/06/2020 Q3: How often do you have si x or more drinks on one occasion? Weekly 05/06/2020 Overall Financial Resource Strain (CARDIA) Answe r Date Recorded How hard is it for you to pa y for the very basics like food, housing, medical care, and heating? Not hard at all 10/05/2019 PHQ-2 Answer Date Recorded PHQ-2 Score 2 08/18/2024 [facility] - Occupational Stress Questionnaire Answer Date Recorded Do you feel stress - tense, restless, nervous, or anxious, or unable to sleep at night because your mind is troubled all the time - these days? Not at all 05/06/2020 Exercise Vital Sign Answer Date Recorde d On average, how many days pe r week do you engage in moderate to strenuous exercise (like a brisk walk)? 0 days 05/12/2024 On average, how many minutes do you engage in exercise at this level? 0 min 05/12/2024 Hunger Vital Sign Answer Date Recorded Within the past 12 months, y ou worried that your food would run out before you got the money to buy more. Never true 05/12/20 Within the past 12 months, t he food you bought just didn't last and you didn't have money to get more. Never true 05/12/2024 PRAPARE - Transportation Answer Date Re corded In the past 12 months, has l ack of transportation kept you from medical appointments or from getting medications? No 04/24 In the past 12 months, has l ack of transportation kept you from meetings, work, or from getting things needed for daily living? No 05/12/2024 Depression Answer Date Recor ded PHQ-9 Total Score (max 27) 13 08/18 Nutrition Answer Date Recorded On average, how many serving s of fruits and vegetables do you eat per day (serving size is equal to 1 cup or approximately the size of a tennis ball)? 3-5 05/12/2024 Dental Answer Date Recorded Dental: Regular Dentist Yes 05/12/20 Employment Answer Date Recorded Employment status Employed and actively working without restrictions 05/12/2024 Housing Stability Answer Date Recorded What is your living situation today? I have a [facility] place to live 05/12/2024 Education Answer Date Recorded What is the highest level of school you have completed or the highest degree you have received? 12th grade 10/05/2019 Comments No Sex and Gender Information Value Date Recorded Sex Assigned at Female 03/21/2024 7:38 AM CDT Legal Sex Female 4:27 AM PUBLIC HEALTH PROFESSOR Gender Identity Female 01/23/2022 8:32 AM CDT Sexual Orientation Straight 03/21/2024 7: 38 AM CDT Last Filed Vital Signs Vital Sign Reading Time Taken Comments Blood Pressure 135/83 08/25/2024 1:49 PM PUBLIC HEALTH PROFESSOR Pulse 79 08/25/2024 1:49 PM PUBLIC HEALTH PROFESSOR Temperature 36.2 C (97.1 F) 08/25/2024 1:49 PM PUBLIC HEALTH PROFESSOR Respiratory Rate 16 08/24/2023 3:13 PM PUBLIC HEALTH PROFESSOR Oxygen Saturation 98% 01/14/2022 3:26 PM CDT Inhaled Oxygen Concentration - - Weight 85.5 kg (188 lb 7.9 oz) 08/25/2024 1:49 P M PUBLIC HEALTH PROFESSOR Height 165.5 cm (5' 5.16) 06/14/2024 4:17 PM CD T Body Mass Index 31.22 06/14/2024 4:17 PM CDT Plan of Treatment Health Maintenance Due Date Last Done Comments CT Colonography 1977 Cologuard 1977 Colonoscopy 1977 Colorectal Cancer Screening 1977 FIT 1977 Dilated Eye Exam 11/24/2023 11/23/2022 (Per formed elsewhere), 10/07/2021, 08/04/2021, Additional history exists Urine Albumin 03/15/2024 03/15/2023, 06/0 02/2023, 01/14/2022, Additional history exists COVID-19 Vaccine ( season) 2024 12/19/2020, 11/21/2020 Influenza Vaccine (#1) 2024 05/28/2008 Diabetic Office Visit with Foot Exam 08/03/2024 08/03/2023, 05/05/2022, 09/02/2020 Depression Monitoring (PHQ-9 for quality tracking) 08/23/2024 Hemoglobin A1C 11/14/2024 05/17/2024, 01/21, 08/03/2023, Additional history exists Depression Monitoring (PHQ-9) 12/17/2024 08/18/2024 Visit: Chronic Disease, age 18+ 02/06/2025 02/07/2024 Mammogram 03/10/2025 03/10/2024, 03/09/2022 Office Visit for Blood Pressure Check / Re-check 08/25/2025 08/25/2024 Creatinine Level (Kidney Function Test) 08/31/2025 08/31/2024, 05/17/2024, 02/07/2024, Additional history exists Potassium Level 08/31/2025 08/31/2024, 08/24, 05/18/2023, Additional history exists Sodium Level 08/31/2025 08/31/2024, 08/24, 05/18/2023, Additional history exists Cervical/Vaginal Cancer Screening 03/09/2027 03/09/2022, 03/09/2022, 04/11/2012 Lipid (Cholesterol) Screening 05/17/2029 05/17/2024, 03/15/2023, 12/06/2020, Additional history exists DTaP,Tdap,and Td Vaccines (3 - Td or Tdap) 08/04/2032 08/04/2022, 04/11/2012, 08/24/1999 HIV Screening Completed 10/15/2021 Pneumococcal vaccine (0-49 years) Completed 01/14/2022, 11/10/2002 Hepatitis B Vaccines Completed 02/07/2024, 03/12/20 Hepatitis C Screening Completed 02/07/2024 IPV Vaccines Aged Out No longer eligi ble based on patient's age to complete this topic Medical Devices Implanted Type Area Oracle Database Consultant Device Identifier Shelf Expiration Date Model / Serial / Lot Cont Glucose Monitoring (Cgm) Cont Glucose Monitoring (CGM) Arm Procedures Procedure Name Priority Date/Time Associated Diagnosis Comments HEMOGLOBIN A1C, B Routine 05/17/2024 3:00 PM CDT 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) LIPID PANEL, S Routine 05/17/2024 3:00 PM CDT 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) CREATININE WITH EGFR, S/P Routine 05/17/2024 3:00 PM CDT 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) BI BREAST SCREENING BILATERAL WITH TOMOSYNTHESIS RAD - Routine (most inpatients and all outpatients) 03/10/2024 3:18 PM CDT Screening Mammogram Breast Cancer HCV AB SCRN W/REFLEX TO HCV PCR, S Routine 02/07/2024 4:54 PM CDT Screening Test Laboratory BASIC METABOLIC PANEL, S/P Routine 03/15/2023 2:48 PM CDT Diabetes Mellitus Type 2 With Diabetic Neuropathy (HCC) ALBUMIN, RANDOM, U Routine 03/15/2023 2:44 PM CDT Diabetes Mellitus Type 2 With Diabetic Neuropathy (HCC) THINPREP W/HPV CO-TEST SCREEN Routine 03/09/2022 3:24 PM CDT Pap Smear Examination HIV-1/-2 AG AND AB SCREEN, PLASMA Routine 10/15/2021 4:17 PM PUBLIC HEALTH PROFESSOR Arthralgia Stiffness Of Other Specified Joint Not Elsewhere Classified from Last 3 Months or Most Recently Relevant to Health Maintenance Results * (ABNORMAL) Lipid Panel (05/17/2024 3:00 PM CDT) Triglycerides 112 mg/dL 05/17/2024 3:42 PM CDT OWAT Comment: ----REFERENCE VALUE---- Normal: <150 mg/dL Borderline High: 150-199 mg/dL High: 200-499 mg/dL Very High: > or =500 mg/dL Cholesterol, Total 150 mg/dL 2023 3:42 PM CDT OWAT Comment: ----REFERENCE VALUE---- Desirable: < 200 mg/dL Borderline High: 200 - 239 mg/dL High: > or = 240 mg/dL Cholesterol, LDL, Calculated 81 mg/dL 05/17/2024 3:42 PM CDT OWAT Comment: ----REFERENCE VALUE---- Desirable: <100 mg/dL Above Desirable: 100-129 mg/dL Borderline High: 130-159 mg/dL High: 160-189 mg/dL Very High: >=190 mg/dL ----ADDITIONAL INFORMATION---- LDL cholesterol calculated using the Lake/NIH equation. Cholesterol, HDL 49(L) >=50 mg/dL 05/17/20 3:42 PM CDT OWAT Cholesterol, Non-HDL, Calculated 101 mg/dL 05/17/2024 3:42 PM CDT OWAT Comment: ----REFERENCE VALUE---- Desirable: <130 mg/dL Above Desirable: 130-159 mg/dL Borderline High: 160-189 mg/dL High: 190-219 mg/dL Very High: > or =220 mg/dL Fasting (8 HR or more) No 05/17/2024 3:00 PM CDT OWAT Blood (Blood, Venous) 05/17/2024 3:00 PM CDT 05/17/2024 3:12 PM CDT Summer Weathers.A.-C., P.A. LAB BLOOD ADD-ON Final Result Performing Organization Address [facility] Co de Phone Number [facility] [address] [place] [address], [place] OWAT [facility] [place] [address] [place] [address] * (ABNORMAL) Hemoglobin A1c (05/17/2024 3:00 PM CDT) Hemoglobin A1c, B 6.7(H) 4.2 - 5.6 % 05/17/2024 3:31 PM CDT OWAT Comment: Hemoglobin A1c values greater than or equal to 6.5 percent are diagnostic for diabetes mellitus. Diagnosis should be confirmed by repeat testing. In diabetic patients, HbA1c goals should be discussed with healthcare provider. Blood (Blood, Venous) 05/17/2024 3:00 PM CDT 05/17/2024 3:12 PM CDT Sandrine DE LA ROSA, Summer.A.-C., P.A. LAB BLOOD ADD-ON Final Result Performing Organization Address [facility] Co de Phone Number [facility] [address] [place] [address], [place] [facility] [facility] [place] [address] [place] [address] * Creatinine with Estimated GFR (05/17/2024 3:00 PM CDT) Creatinine 0.89 0.59 - 1.04 mg/dL 05/17/2024 3:42 PM CDT OWAT Estimated GFR (eGFR) 80 >=60 mL/min/BSA 05/17/2024 3:42 PM CDT OWAT Comment: Estimated GFR calculated using the 2020 CKD_EPI creatinine equation. Blood (Blood, Venous) 05/17/2024 3:00 PM CDT 05/17/2024 3:12 PM CDT us Sandrine DE LA ROSA, Hetal., P.A. LAB BLOOD ADD-ON Final Result [facility] [address] [place] [address], [place] [facility] [place] [address] [place] [address] * BI Breast Screening Bilateral with Tomosynthesis (03/10/2024 3:18 PM CDT) Anatomical Region Laterality Modality Breast, Breast Imaging RST L OS, Breast Imaging ARZ LOS, Breast Imaging FLA LOS Bilateral Mammography Impressions 03/10/2024 3:44 PM CDT Negative. RECOMMENDATION: Annual Screening Mammogram ASSESSMENT: BI-RADS: 1: Negative. Narrative 03/10/2024 3:44 PM CDT EXAM: BI BREAST SCREENING BILATERAL WITH TOMOSYNTHESIS Current study was evaluated with a Computer Aided Detection (CAD) system. INDICATION: Screening mammogram. COMPARISON: Prior exam(s) were available and reviewed for comparison. DENSITY: c. The breast(s) are heterogeneously dense, which may obscure small masses. FINDINGS: No mammographic findings of malignancy. Procedure Note Jacques Muir M.D. - 03/10/2024 EXAM: BI BREAST SCREENING BILATERAL WITH TOMOSYNTHESIS Current study was evaluated with a Computer Aided Detection (CAD) system. INDICATION: Screening mammogram. COMPARISON: Prior exam(s) were available and reviewed for comparison. DENSITY: c. The breast(s) are heterogeneously dense, which may obscuresmall masses. FINDINGS: No mammographic findings of malignancy. IMPRESSION: Negative. RECOMMENDATION: Annual Screening Mammogram ASSESSMENT: BI-RADS: 1: Negative. us Opal Guajardo P.A.-C., P.A. IMG BI PROCEDURES Fi nal Result * HCV Ab Scrn w/Reflex to HCV PCR, Serum (02/07/2024 4:54 PM CDT) [facility] HCV Ab Screen, S Negative Negative 02/07/2024 8:24 PM CDT [facility] Blood (Blood, Venous) 02/07/2024 4:54 PM CDT 02/07/2024 7:14 PM CDT [facility] - 02/07/2024 8:24 PM CDT Specimen Information: Specimen ID: [id number] Specimen Type: Blood Specimen Collection Start Date: 02/07/2024 4:54 PM Specimen Received Date: 02/07/2024 7:14 PM Specimen ID: [id number] Specimen Type: Blood Specimen Collection Start Date: 02/07/2024 4:54 PM Specimen Received Date: 02/07/2024 7:05 PM Opal Guajardo P.A.-C., P.A. LAB MICROBIOLOGY - B LOOD ORDERABLES Final Result [facility] [address] [place] [address], [facility] [place] [address] [place] [address] * (ABNORMAL) Basic Metabolic Panel (03/15/2023 2:48 PM CDT) [facility] Potassium, P 4.2 3.6 - 5.2 mmol/L 03/15/2023 3:43 PM CDT OWAT Sodium, P 135 135 - 145 mmol/L 03/15/2023 3:43 PM CDT OWAT Chloride, P 99 98 - 107 mmol/L 03/15/2023 3:43 PM CDT OWAT Bicarbonate, P 24 22 - 29 mmol/L 03/15/2023 3:43 PM CDT OWAT Anion Gap, P 12 7 - 15 03/15/2023 3:43 PM CDT OWAT BUN (Blood Urea Nitrogen), P 22(H) 6 - 21 mg/dL 03/15/2023 3:43 PM CDT OWAT Creatinine 0.93 0.59 - 1.04 mg/dL 03/15/2023 3:43 PM CDT OWAT Estimated GFR (eGFR) 77 >=60 mL/min/BSA 03/15/2023 3:43 PM CDT OWAT Comment: Estimated GFR calculated using the 2020 CKD_EPI creatinine equation. Calcium, Total, P 9.5 8.6 - 10.0 mg/dL 03/15/2023 3:43 PM CDT OWAT Glucose, P 135 70 - 140 mg/dL 03/15/2023 3:43 PM CDT [facility] Blood (Blood, Venous) 03/15/2023 2:48 PM CDT 03/15/2023 3:02 PM CDT us Opal Guajardo P.A.-C., P.A. LAB BLOOD ADD-ON Fin al Result Performing Organization Address [facility]/ZIP Co de Phone Number [facility] [address] [place] [address], [facility] [[email or web address] OWAT [facility] [place] [address] [place] [id number] * (ABNORMAL) Albumin, Random, Urine (03/15/2023 2:44 PM CDT) Microalbumin 692.0 mg/L 03/15/2023 5:24 PM CDT OWAT Creatinine 112 mg/dL 03/15/2023 4:58 PM CDT OWAT Albumin/Creatinin e Ratio 618(H) <25 mg/g 03/15/2023 5:24 PM CDT OWAT Urine (Urine, Voided) 03/15/2023 2:44 PM CDT 03/15/2023 3:02 PM CDT us Opal Guajardo P.A.-C., P.A. LAB URINE ORDERABLES Final Result Performing Organization Address [facility]/ZIP Co de Phone Number [facility] [address], [place] [address], [place] OW[place] [facility] [place] [address] [place] [address] * ThinPrep w/HPV Co-Test Screen (03/09/2022 3:24 PM CDT) 03/17/2022 7:30 AM CDT [facility] Report electronically signed by SILVANA Sanz(ASCP) I verify that I have examined all relevant slides/materials for the specimen(s) and rendered or confirmed the diagnosis. 03/17/2022 7:30 AM CDT [facility] Gross Description Received specimen in a ThinPrep vial. 03/17/2022 7:30 AM CDT [facility] Pap Test Source Cervical/Endocervi saran 03/17/2022 7:30 AM CDT [facility] Clinical History routine exam 2021 7:30 AM CDT [facility] Menstrual Status(LMP, PM, ) unknown 03/17/2022 7:30 AM CDT [facility] Hormone Therapy/Contracep tives unknown 03/17/2022 7:30 AM CDT [facility] Interpretation Cervical/Endocervi saran (ThinPrep): Satisfactory for Evaluation Negative for Intraepithelial Lesion or Malignancy High Risk HPV: Negative Negative for High Risk HPV by nucleic acid amplification. The following High Risk HPV types were not detected: 16, 18, 31, 33, 35, 39, 45, 51, 52, 56, 58, 59, 66, and 68. 03/17/2022 7:30 AM CDT [facility] Varies (Cervix/Endocerv ix) 03/09/2022 3:24 PM CDT 03/10/2022 7:24 AM CDT us Debo Mathur M.D. LAB PAP PATHDX ORDERABLE S Final Result [facility] [address] [place] [address], [facility] [[email or web address]] [facility] [address] [place] [address] * HIV-1/-2 Ag and Ab Screen, Plasma (10/15/2021 4:17 PM PUBLIC HEALTH PROFESSOR) HIV Ag/Ab Screen, P Negative Negative 10/16/2021 1:54 PM PUBLIC HEALTH PROFESSOR [facility] Comment: Negative result does not rule out HIV infection. If exposure to HIV infection occurred <14 days ago, contact the laboratory to request addition of HIV-1 RNA detection / quantification test. HIV-1 p24 Ag Screen, P Negative Negative 10/16/2021 1:54 PM PUBLIC HEALTH PROFESSOR [facility] Comment: Negative result does not rule out HIV infection. If exposure to HIV infection occurred <14 days ago, contact the laboratory to request addition of HIV-1 RNA detection / quantification test. HIV-1 Ab Screen, P Negative Negative 2021 1:54 PM PUBLIC HEALTH PROFESSOR [facility] Comment: Negative result does not rule out HIV infection. If exposure to HIV infection occurred <14 days ago, contact the laboratory to request addition of HIV-1 RNA detection / quantification test. HIV-2 Ab Screen, P Negative Negative 2021 1:54 PM PUBLIC HEALTH PROFESSOR [facility] Comment: Negative result does not rule out HIV infection. If exposure to HIV infection occurred <14 days ago, contact the laboratory to request addition of HIV-1 RNA detection / quantification test. Blood (Blood, Venous) 10/15/2021 4:17 PM PUBLIC HEALTH PROFESSOR 10/16/2021 12:02 PM PUBLIC HEALTH PROFESSOR Yasmin Dillard M.D. LAB MICROBIOLOGY - BLOOD ORDERABLES Final Result [facility] [address] [place] [id number], [facility] [[email or web address]] [facility] in [address] [address] from Last 3 Months or Most Recently Relevant to Health Maintenance Insurance [employer] Care Teams Director Of Preclinical Research Relationship Specialty Start Date End Date Opal Guajardo P.A.-C., P.A. [address] [place] [address] PCP - General 02/05/22
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
[2025-01-29 16:54] VITALS: BP 164/89; PULSE 78; RESP 16; TEMP 36.7; O2SAT 98; BMI 30.2
--- NOTE | 2025-01-29 16:58 | CRLHL7_ITS ---
For Patients: As a result of the Cures Act, medical imaging exams and procedure reports are released immediately into your electronic medical record. You may view this report before your referring provider. If you have questions, please contact your health care provider. Indication: Fall, pain. Technique: Two views right clavicle. Comparison: None. Findings/Impression: No acute displaced fracture or malalignment. No soft tissue swelling. Joint spaces are maintained. Bony mineralization is age appropriate. Dictated by Jacques Danielle MD @ 01/29/2025 5:51:06 PM (Electronically Signed)
--- NOTE | 2025-01-29 17:05 | ED.GENADULT ---
HPI - General Adult General Chief complaint: Clavicle Injury/Pain Stated complaint: Broken collarbone Time Seen by Provider: 01/29/25 16:58 History of Present Illness HPI narrative: This 49-year-old female comes in with an injury to her right clavicle. She states that her 90 lb dog caused her to fall and she landed onto her right elbow and has pain in the right clavicle region. She also bruised her right knee. She did not hit her head or have loss of consciousness. She was able to get up and ambulate normally. She is complaining of pain focused in the right clavicle region. Related Data Home Medications ?Medication ?Instructions ?Recorded ?Confirmed gabapentin 300 mg capsule 900 mg PO TID 03/27/22 01/29/25 lisinopril 10 mg tablet 10 mg PO DAILY 03/27/22 01/29/25 escitalopram oxalate 20 mg tablet 20 mg PO DAILY 01/29/25 01/29/25 semaglutide 0.25 mg or 0.5 mg (2 0.5 mg subcut 01/29/25 mg/3 mL) subcutaneous pen injector (Ozempic) semaglutide 1 mg/dose (4 mg/3 mL) 1 mg subcut 01/29/25 subcutaneous pen injector (Ozempic) Previous Rx's ?Medication ?Instructions ?Recorded cephalexin 500 mg capsule 500 mg PO QID 7 days #28 caps 03/27/22 ketorolac 10 mg tablet 10 mg PO TID 5 days #15 tabs 01/29/25 Allergies Allergy/AdvReac Type Severity Reaction Status Date / Time cat dander Allergy Unknown Verified 03/27/22 09:28 Review of Systems Status of ROS: Reports: 10 or more systems reviewed and unremarkable except as noted in History and below Narrative: Constitutional: No fevers, no weight gain or loss. Eyes: No discharge. No vision changes. HENT: No congestion, no sore throat, no ear pain. Cardiovascular: No chest pain, no palpitations. Respiratory: No shortness of breath, no wheezes, no cough. Gastrointestinal: No abdominal pain, no vomiting, no diarrhea. Genitourinary: No dysuria, no hematuria. Musculoskeletal: Right shoulder pain with decreased range of motion of the right upper extremity. Skin: No rashes, no pruritis. Neurological: No dizziness, weakness, sensory change, speech change. Endo/Heme/Allergies: No bruising or bleeding. No polydipsia. Pysch: no suicidality, no anxiety, no insomnia. All other systems reviewed and are negative. [facility] Social History Smoking Status: Never smoker Do you use any of these nicotine containing products: None Second hand tobacco smoke exposure: No How often do you have a drink containing alcohol: 2-4 times a month How many standard drinks containing alcohol do you have on a typical day: 5 or 6 How often do you have six or more drinks on one occasion: Weekly AUDIT-C Alcohol total score: 7 Non-prescribed substance use: denies use and marijuana (any form) Exam Narrative: Exam Narrative: Constitutional: Well-developed, well-nourished, no acute distress. HEENT: Normocephalic, atraumatic. Neck: Normal range of motion. Nontender. Supple. Heart: Intact distal pulses. Lungs: No chest discomfort. No wheezes, rhonchi, or rales. Abdomen: Nontender. Back: Normal range of motion. Extremities: Pain localized around right clavicle. No obvious deformity. Decreased range of motion of the right upper extremity. Skin: Intact. No rash. Warm. No erythema or pallor. Neurologic: No altered sensation. No weakness. Alert and oriented. Psychiatric: No suicidality. No anxiety or depression. No insomnia. Nursing notes and vitals signs are reviewed. Const: Vital Signs, click to edit/add: Vital Signs - 24 hr 01/29/25 16:54 Temperature 98.1 F Pulse Rate [Pulse Oximeter] 78 Respiratory Rate 16 Blood Pressure [Ri ght Upper Arm] 164/89 H Pulse Oximetry 98 Oxygen Delivery Me thod Room Air Course Vital Signs Vital signs: Initial Vital Signs Temperature 98.1 F 01/29/25 16:54 Temperature Source Temporal Artery Scan 01/29/25 16:54 Pulse Rate 78 01/29/25 16:54 Respiratory Rate 16 01/29/25 16:54 Blood Pressure 164/89 H 01/29/25 16:54 Blood Pressure Mean 114 H 01/29/25 16:54 Blood Pressure Position Sitting 01/29/25 16:54 Pulse Oximetry 98 01/29/25 16:54 Oxygen Delivery Method Room Air 01/29/25 16:54 Vital Signs Temperature 98.1 F 01/29/25 16:54 Pulse Rate 78 01/29/25 16:54 Respiratory Rate 16 01/29/25 16:54 Blood Pressure 164/89 H 01/29/25 16:54 Pulse Oximetry 98 01/29/25 16:54 Oxygen Delivery Method Room Air 01/29/25 16:54 Temperature 98.1 F 01/29/25 16:54 Pulse Rate 78 01/29/25 16:54 Respiratory Rate 16 01/29/25 16:54 Blood Pressure 164/89 H 01/29/25 16:54 Pulse Oximetry 98 01/29/25 16:54 Oxygen Delivery Method Room Air 01/29/25 16:54 Medications Administered Medications: Discontinued Medications Generic Name Dose Route Start Last Admin Trade Name Bari PRN Reason Stop Dose Admin Morphine Sulfate 6 mg 01/29/25 17:36 01/29/25 17:45 Morphine 10 Mg/Ml Inj IM 01/29/25 17:37 6 mg ONCE ONE Administration Medical Decision Making MDM Narrative Medical decision making narrative: This 49-year-old female fell and injured her right shoulder region. She was suspicious that she may have fractured her clavicle. She does not have any point tenderness or discomfort when palpating her right upper extremity. She does indicate some tenderness along the clavicle. X-ray images are obtained which show no sign of fracture or dislocation. The patient did receive a sling and an injection of morphine 6 mg here. A prescription for Toradol as provided and I did also provide a return to work note. Imaging Data XR R clavicle: Radiologist's impression: No acute displaced fracture or malalignment. No soft tissue swelling. Discharge Plan Discharge Clinical Impression: Injury of shoulder, right Patient Disposition: Home, Self-Care Condition: Stable Additional Instructions: Wear sling as needed and increase activity as tolerated. Use medicine also as needed and directed. Follow up with MD or return if worsening. Prescriptions: New ketorolac 10 mg tablet 10 mg PO TID 5 Days Qty: 15 0RF No Action escitalopram oxalate 20 mg tablet 20 mg PO DAILY Ozempic 1 mg/dose (4 mg/3 mL) pen injector 1 mg subcut Ozempic 0.25 mg or 0.5 mg (2 mg/3 mL) pen injector 0.5 mg subcut gabapentin 300 mg capsule 900 mg PO TID lisinopril 10 mg tablet 10 mg PO DAILY cephalexin 500 mg capsule 500 mg PO QID 7 Days Qty: 28 0RF Follow Up/Referrals: Provider,Not a Local [Primary Care Provider, Family Practice] Stand Alone Forms: [employer] Info Instructions
[2025-01-29] MEDS: MORPHINE 10 MG/ML inj 6 MG IM (17:45)
== END 2025-01-29 18:35 | disposition home or self-care (01) ==
PROVIDERS: Emergency Provider Emergency Medicine Emergency Medical Services
DX: M25.511 Pain in right shoulder (principal); W01.0XXA Fall on same level from slipping, tripping and stumbling without subsequent striking against object, initial encounter
CPT/HCPCS: 73000; 96372; 99283; 99284; J2270